=== PATIENT | female | born 1960 | race Caucasian/White ===

== ENCOUNTER 2022-08-18 11:44 | Inpatient (IN) | payer OTHER, SELFPAY ==
[2022-08-18 11:44] VITALS: BP 110/90; PULSE 93; RESP 16; TEMP 36.6; O2SAT 100; BMI 17.0
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
--- NOTE | 2022-08-18 12:42 | ED.RN ---
NO OLD EKGS LISTED.
[2022-08-18 13:27] LABS: International Normalized Ratio 1.1; Prothrombin Time (Protime)PT. 13.8 SECONDS (11.7-14.9)
[2022-08-18 13:28] LABS: Partial Thromboplast Time 28.4 Seconds (24.1-36.2)
[2022-08-18 13:29] LABS: Alcohol, Blood (Medical)-Serum < 3.0 mg/dL
[2022-08-18 13:36] LABS: Absolute Lymphocyte Count 0.73 X10^3/uL (0.83-4.51); Absolute Neutrophil Count 9.2 X10^3/uL (2.0-7.7); Basophil# 0.03 X10^3/uL; Basophil% 0.3 % (0-1); Eosinophil# 0.02 X10^3/uL; Eosinophils% 0.2 % (0-5); Hematocrit 42.1 % (37-47); Hemoglobin 14.4 g/dL (12.0-15.0); Lymphocyte # 0.73 X10^3/ul (0.83-4.51); Lymphocyte % 6.6 % (19-41); Mean Corp Hgb Conc 34.2 g/dL (32-36); Mean Corpuscular Hgb 32.3 pg (27.0-32.0); Mean Corpuscular Volume 94.4 fL (81-99); Mean Platelet Vol. 10.7 fl (6.2-12.0); Monocyte# 1.02 X10^3/uL; Monocyte% 9.2 % (0-10); NRBC Flagged by Analyzer 0 % (0-5); Neutrophil # 9.15 X10^3/uL (2.7-7.7); Neutrophil % 82.7 % (47-70); Platelet Count 281 K/mm3 (150-450); RBC Distribution Width CV 11.9 % (11.6-14.6); RBC Distribution Width SD 40.8 fl (35.1-43.9); Red Blood Count 4.46 M/mm3 (4.2-5.4); White Blood Count 11.1 K/mm3 (4.4-11.0)
[2022-08-18 13:39] LABS: Bacteria 0 SEEN /hpf (None Seen); Mucous, Urine 0 SEEN /hpf (<or=2+)
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
[2022-08-18 13:51] LABS: AST(SGOT) 104 U/L (15-37); Alanine Aminotransfer ALT/SGPT 55 U/L (13-56); Albumin, Serum 3.5 g/dL (3.2-5.0); Alkaline Phosphatase 72 U/L (45-117); Anion Gap 11 (5-15); BUN 13 mg/dL (7-18); BUN/Creat Ratio 19.9 RATIO (10-20); Bilirubin, Direct 0.18 mg/dL (0.00-0.30); CPK Total, Creatine Kinase 1791 U/L (26-192); Calcium,Total 9.5 mg/dL (8.5-10.1); Chloride 95 mmol/L (98-107); Creatinine, Serum 0.65 mg/dL (0.55-1.02); EST Glomerular Filtration Rate 98 mL/min (>60); Est Glom Filt Rate - Afr Amer 118 mL/min (>60); Estimated Creatinine Clearance 77.45 ml/min; Globulin 3.7 g/dL (2.2-4.2); Glucose 130 mg/dL (74-106); Potassium 2.8 mmol/L (3.5-5.1); Protein, Total 7.2 g/dL (6.4-8.2); Sodium Level 131 mmol/L (136-145)
[2022-08-18 13:53] LABS: Color, Urine Yellow (Yellow); Glucose, Dipstick Normal (Normal); Leukocyte Esterase-Dipstick 500 /ul (Negative); Nitrite-Dipstick Negative (Negative); Occult Blood-Urine 250 /ul (Negative); Protein-Dipstick 30 mg/dl (Negative); Urine Bilirubin Dipstick Negative (Negative); Urine Clarity Sl. Cloudy (Clear); Urine Urobilinogen Normal (Normal); Urine pH 6.5 (5.0 - 8.0)
[2022-08-18 13:55] LABS: Ketone-Dipstick 150 mg/dl (Negative)
[2022-08-18 13:58] LABS: Amphetamine Urine VISTA NEGATIVE (<1000 ng/mL); Barbiturate Urine VISTA NEGATIVE (< 200 ng/mL); Benzodiazepine Urine VISTA NEGATIVE (< 200 ng/mL); Cocaine Urine VISTA NEGATIVE (< 300 ng/mL); Ecstacy Urine VISTA POSITIVE (< 500 ng/mL); Methadone Urine VISTA NEGATIVE (< 300 ng/mL); PCP Urine VISTA NEGATIVE (< 25 ng/mL); THC Urine VISTA POSITIVE (< 50 ng/mL); Vista UDS pH Range 6
[2022-08-18 14:00] VITALS: BP 125/88; PULSE 87; RESP 19; O2SAT 99
[2022-08-18 14:00] LABS: Hyaline Cast 0-5 SEEN /lpf (0-5); Red Blood Cells-Urine 25-50 SEEN /hpf (0-5); Squamous Epithelial Cells - UA 0-5 SEEN /hpf (5-10); White Blood Cells 25-50 SEEN /hpf (0-5)
[2022-08-18] MEDS: 0.9% Normal Saline 1,000 ML 999 ML IV ×3 (14:31→18:08)
[2022-08-18 16:00] VITALS: BP 117/77; PULSE 77; RESP 12; O2SAT 99
[2022-08-18] MEDS: Potassium Chloride Oral Tablet 20 MEQ 40 MEQ PO (16:46)
[2022-08-18 17:43] LABS: CPK Total, Creatine Kinase 4728 U/L (26-192)
[2022-08-18 18:00] VITALS: BP 119/83; PULSE 84; RESP 14; O2SAT 97
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
[2022-08-18 19:02] VITALS: BP 119/68; PULSE 78; RESP 22; TEMP 36.6; O2SAT 98
[2022-08-18 19:33] LABS: Magnesium 1.7 mg/dL (1.6-2.6)
[2022-08-18 19:48] VITALS: BP 128/75; PULSE 78; RESP 18; TEMP 36.7; O2SAT 100; BMI 17.2
[2022-08-18] MEDS: Ibuprofen 600 MG Tablet PO (20:14)
[2022-08-18] MEDS: KCL 20MEQ in 0.9% NS 20 MEQ/1,000 ML IV.SOLN. 150 MEQ IV (20:23)
[2022-08-19 02:00] VITALS: BP 96/72; PULSE 74; RESP 18; TEMP 37.1; O2SAT 94
[2022-08-19] MEDS: KCL 20MEQ in 0.9% NS 20 MEQ/1,000 ML IV.SOLN. 150 MEQ IV ×2 (02:34→10:54)
[2022-08-19] MEDS: Albuterol 2.5 MG/3 ML VIAL.NEB. INHALATION (07:20)
[2022-08-19] MEDS: Budesonide Respules 0.5 MG/2 ML AMPUL.NEB. INHALATION (07:21)
[2022-08-19 07:22] VITALS: PULSE 78; RESP 18; O2SAT 96
[2022-08-19 07:43] LABS: Anion Gap 7 (5-15); BUN 3 mg/dL (7-18); BUN/Creat Ratio 7.6 RATIO (10-20); CPK Total, Creatine Kinase 3067 U/L (26-192); Calcium,Total 8.4 mg/dL (8.5-10.1); Chloride 114 mmol/L (98-107); EST Glomerular Filtration Rate 174 mL/min (>60); Est Glom Filt Rate - Afr Amer 210 mL/min (>60); Estimated Creatinine Clearance 127.38 ml/min; Glucose 103 mg/dL (74-106); Magnesium 1.8 mg/dL (1.6-2.6); Potassium 3.4 mmol/L (3.5-5.1); Sodium Level 145 mmol/L (136-145)
[2022-08-19 08:00] VITALS: BP 99/87; PULSE 83; RESP 18; TEMP 37.1; O2SAT 94
[2022-08-19] MEDS: Methylphenidate HCl 5 MG Tablet 20 MG PO ×3 (08:22→16:33)
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
[2022-08-19] MEDS: Loratadine 10 MG Tablet PO (10:53)
[2022-08-19] MEDS: Enoxaparin 40 MG/0.4 ML Syringe SC (10:54)
--- NOTE | 2022-08-19 11:58 | CASEMGMT ---
Social Work SW met w/pt in room as she had indicated to RN that she may want help in calling [facility]. SW spoke w/pt about this. Pt states she is not certain yet if she wants to call there, or where she wants to call. She informed SW she has ADHD, just started taking her medication again today. She states she isn't incompetent, but doesn't think she can do a phone call. SW explained can assist, and they would ask her questions. Pt again explained has ADHD, does not feel she can do this today. She states that the mind and body need to come together. SW inquired what medications she takes, pt states takes Ritalin and sometimes Wellbutrin. Pt does deny wanting to harm herself. Pt agreeable to speak w/SW tomorrow about calling [facility]. SW let the SW on MS3 know to follow up w/pt tomorrow. RUBY Mendoza
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
--- NOTE | 2022-08-19 15:43 | CASEMGMT ---
Social work Pt no longer has cell phone. Pt requesting cell phone number be removed from chart. SW updated demographics and removed previous cell number. Pt currently does not have another to add. PRAVEEN Maldonado
[2022-08-19 16:24] VITALS: BP 117/74; PULSE 91; RESP 18; TEMP 36.8; O2SAT 98
--- NOTE | 2022-08-19 20:02 | NURSING ---
Pt refused her evening meds. Pt said i have taken enough of those and no more.
[2022-08-19 20:07] VITALS: BP 122/77; PULSE 83; RESP 18; TEMP 36.6; O2SAT 95
--- NOTE | 2022-08-20 02:34 | NURSING ---
Attempted to do assessment pt refused. Would not allow this nurse to take cover off. Pt said i dont want to be touched. Did get vitals po from toe
[2022-08-20 02:35] VITALS: BP 132/83; PULSE 85; RESP 17; TEMP 36.7; O2SAT 95
[2022-08-20 07:35] LABS: Absolute Lymphocyte Count 1.21 X10^3/uL (0.83-4.51); Absolute Neutrophil Count 3.4 X10^3/uL (2.0-7.7); Basophil# 0.03 X10^3/uL; Basophil% 0.6 % (0-1); Eosinophil# 0.05 X10^3/uL; Eosinophils% 0.9 % (0-5); Hematocrit 36.6 % (37-47); Hemoglobin 12.6 g/dL (12.0-15.0); Lymphocyte # 1.21 X10^3/ul (0.83-4.51); Lymphocyte % 22.2 % (19-41); Mean Corp Hgb Conc 34.4 g/dL (32-36); Mean Corpuscular Hgb 32.5 pg (27.0-32.0); Mean Corpuscular Volume 94.3 fL (81-99); Mean Platelet Vol. 10.7 fl (6.2-12.0); Monocyte# 0.71 X10^3/uL; Monocyte% 13.1 % (0-10); NRBC Flagged by Analyzer 0 % (0-5); Neutrophil # 3.43 X10^3/uL (2.7-7.7); Platelet Count 235 K/mm3 (150-450); RBC Distribution Width CV 12.3 % (11.6-14.6); RBC Distribution Width SD 42.6 fl (35.1-43.9); Red Blood Count 3.88 M/mm3 (4.2-5.4); White Blood Count 5.4 K/mm3 (4.4-11.0)
[2022-08-20 07:53] VITALS: O2SAT 95
[2022-08-20 08:08] LABS: BUN 1 mg/dL (7-18); BUN/Creat Ratio 3.1 RATIO (10-20); CPK Total, Creatine Kinase 1828 U/L (26-192); Calcium,Total 8.9 mg/dL (8.5-10.1); Chloride 103 mmol/L (98-107); Creatinine, Serum 0.32 mg/dL (0.55-1.02); EST Glomerular Filtration Rate 223 mL/min (>60); Est Glom Filt Rate - Afr Amer 270 mL/min (>60); Estimated Creatinine Clearance 159.22 ml/min; Glucose 109 mg/dL (74-106); Potassium 2.8 mmol/L (3.5-5.1); Sodium Level 141 mmol/L (136-145)
[2022-08-20 08:09] LABS: Anion Gap 8 (5-15)
--- NOTE | 2022-08-20 09:15 | CASEMGMT ---
Social Work Per Fatoumata RNCM who spoke with pt regarding advance directives: Pt states she has completed these in the past, but no longer want the people listed to be decision makers. She states she does not want to complete new AD and states she does not want anyone as her POA. Attempted to educate pt that her LNOK would legally be the decision maker if she were in a condition unable to to make medical decisions and she states, Well by that time, it wouldn't matter. Pt does not have any documents on file. Pt is and does have a listed daughter, Dora Riley. PRAVEEN Dalton
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
--- NOTE | 2022-08-20 19:53 | NURSING ---
Patient refusing vitals to be checked, assessments, and meds this shift.
[2022-08-20 22:39] VITALS: BP 121/89; PULSE 77; RESP 18; TEMP 36.6; O2SAT 96
--- NOTE | 2022-08-20 23:01 | NURSING ---
3050. pt visibly covered in feces and urine. vitals and assessment were able to be completed with prompting from pt. pt refused to be 'totally uncovered during assessment and refused to have bedsheets and hygiene provided because it will throw off all of my progress and mess up my equilibrium. i am almost there so i dont want to disturb it primary RN Abi singh.
--- NOTE | 2022-08-20 23:15 | NURSING ---
Patient covered in urine and stool. Is allowing to be cleaned up at this time. Is covering face and will not allow us to see her face.
[2022-08-21 06:58] LABS: Absolute Lymphocyte Count 0.93 X10^3/uL (0.83-4.51); Absolute Neutrophil Count 3.4 X10^3/uL (2.0-7.7); Basophil# 0.02 X10^3/uL; Basophil% 0.4 % (0-1); Eosinophil# 0.06 X10^3/uL; Eosinophils% 1.2 % (0-5); Hematocrit 39.8 % (37-47); Hemoglobin 13.5 g/dL (12.0-15.0); Lymphocyte # 0.93 X10^3/ul (0.83-4.51); Lymphocyte % 18.5 % (19-41); Mean Corp Hgb Conc 33.9 g/dL (32-36); Mean Corpuscular Hgb 32.5 pg (27.0-32.0); Mean Corpuscular Volume 95.7 fL (81-99); Mean Platelet Vol. 10.1 fl (6.2-12.0); Monocyte# 0.64 X10^3/uL; Monocyte% 12.7 % (0-10); NRBC Flagged by Analyzer 0 % (0-5); Neutrophil # 3.37 X10^3/uL (2.7-7.7); Platelet Count 259 K/mm3 (150-450); Red Blood Count 4.16 M/mm3 (4.2-5.4)
[2022-08-21 07:37] LABS: Anion Gap 8 (5-15); BUN 10 mg/dL (7-18); BUN/Creat Ratio 25.9 RATIO (10-20); CPK Total, Creatine Kinase 622 U/L (26-192); Calcium,Total 9.1 mg/dL (8.5-10.1); Chloride 102 mmol/L (98-107); Creatinine, Serum 0.39 mg/dL (0.55-1.02); EST Glomerular Filtration Rate 180 mL/min (>60); Est Glom Filt Rate - Afr Amer 217 mL/min (>60); Estimated Creatinine Clearance 130.64 ml/min; Glucose 111 mg/dL (74-106); Potassium 2.8 mmol/L (3.5-5.1); Sodium Level 141 mmol/L (136-145)
[2022-08-21 08:11] VITALS: BP 117/72; PULSE 89; RESP 16; TEMP 36.8; O2SAT 94
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
--- NOTE | 2022-08-21 17:01 | NURSING ---
Crisis arrives to evaluate patient.
[2022-08-21 21:23] VITALS: BP 108/70; PULSE 90; RESP 18; TEMP 37.2; O2SAT 94
--- NOTE | 2022-08-22 03:32 | NURSING ---
SEVERAL CALLS FROM [facility]. ORIGINALLY SAID THEY WERE WAITING ON APPROVAL @ [facility] AND WOULD GO TO [facility] IF THEY STILL HAD A BED AFTER APPROVAL. LATER THEY CALLED AND SAID PT WOULD NOW BE GOING TO [facility] AND IT WOULD BE A WHILE, EXPECT PT TO BE HERE OVER THE WEEKEND
[2022-08-22 06:30] LABS: Absolute Lymphocyte Count 1.03 X10^3/uL (0.83-4.51); Absolute Neutrophil Count 2.7 X10^3/uL (2.0-7.7); Basophil# 0.02 X10^3/uL; Basophil% 0.5 % (0-1); Eosinophil# 0.06 X10^3/uL; Eosinophils% 1.4 % (0-5); Hematocrit 40.1 % (37-47); Hemoglobin 13.6 g/dL (12.0-15.0); Lymphocyte # 1.03 X10^3/ul (0.83-4.51); Lymphocyte % 23.3 % (19-41); Mean Corp Hgb Conc 33.9 g/dL (32-36); Mean Corpuscular Hgb 32.3 pg (27.0-32.0); Mean Corpuscular Volume 95.2 fL (81-99); Mean Platelet Vol. 9.8 fl (6.2-12.0); Monocyte# 0.64 X10^3/uL; Monocyte% 14.4 % (0-10); NRBC Flagged by Analyzer 0 % (0-5); Neutrophil # 2.68 X10^3/uL (2.7-7.7); Neutrophil % 60.4 % (47-70); Platelet Count 272 K/mm3 (150-450); RBC Distribution Width CV 11.9 % (11.6-14.6); RBC Distribution Width SD 41.3 fl (35.1-43.9); Red Blood Count 4.21 M/mm3 (4.2-5.4); White Blood Count 4.4 K/mm3 (4.4-11.0)
[2022-08-22 07:16] LABS: Anion Gap 10 (5-15); BUN 21 mg/dL (7-18); BUN/Creat Ratio 56.6 RATIO (10-20); CPK Total, Creatine Kinase 240 U/L (26-192); Chloride 105 mmol/L (98-107); Creatinine, Serum 0.37 mg/dL (0.55-1.02); EST Glomerular Filtration Rate 188 mL/min (>60); Est Glom Filt Rate - Afr Amer 227 mL/min (>60); Glucose 102 mg/dL (74-106); Potassium 2.9 mmol/L (3.5-5.1); Sodium Level 143 mmol/L (136-145)
--- NOTE | 2022-08-22 08:02 | NURSING ---
Patient only allowed one set of vitals and one assessment last night (08/21/22.)
[2022-08-22 09:20] VITALS: BP 123/85; PULSE 79; RESP 18; TEMP 36.9; O2SAT 98
--- NOTE | 2022-08-22 09:35 | NURSING ---
This RN in room and introduced myself. I don't need no nurse. Explained to pt that I would just be there to make sure she was safe. This RN explained that I had to take her Blood pressure and pt agitated and stated They already got it. Explained that that was last night and it was important to check it again. Pt agreeable. Vitals taken, see vitals. This RN tried to get pt to take ensure, pt refused despite showing her it was sealed. This RN also asked if it was okay to give her her scheduled meds. Pt refused.
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
--- NOTE | 2022-08-22 12:29 | NURSING ---
call placed to crisis requesting update on bed status for patient
[2022-08-22] MEDS: Potassium Chloride Oral Tablet 20 MEQ 60 MEQ PO (12:38)
[2022-08-22 17:51] VITALS: BP 102/65; PULSE 88; RESP 16; TEMP 36.7; O2SAT 97
[2022-08-23 00:40] VITALS: BP 122/85; PULSE 69; RESP 18; TEMP 36.8; O2SAT 96
[2022-08-23 07:18] LABS: Absolute Lymphocyte Count 1.73 X10^3/uL (0.83-4.51); Basophil# 0.05 X10^3/uL; Basophil% 0.9 % (0-1); Eosinophil# 0.12 X10^3/uL; Eosinophils% 2.1 % (0-5); Hematocrit 41.2 % (37-47); Hemoglobin 14.3 g/dL (12.0-15.0); Lymphocyte # 1.73 X10^3/ul (0.83-4.51); Lymphocyte % 30.2 % (19-41); Mean Corp Hgb Conc 34.7 g/dL (32-36); Mean Corpuscular Hgb 32.7 pg (27.0-32.0); Mean Corpuscular Volume 94.3 fL (81-99); Mean Platelet Vol. 10.5 fl (6.2-12.0); Monocyte# 0.81 X10^3/uL; Monocyte% 14.1 % (0-10); NRBC Flagged by Analyzer 0 % (0-5); Neutrophil # 2.99 X10^3/uL (2.7-7.7); Neutrophil % 52.2 % (47-70); Platelet Count 284 K/mm3 (150-450); RBC Distribution Width CV 11.7 % (11.6-14.6); RBC Distribution Width SD 40.7 fl (35.1-43.9); Red Blood Count 4.37 M/mm3 (4.2-5.4); White Blood Count 5.7 K/mm3 (4.4-11.0)
[2022-08-23 07:56] LABS: Anion Gap 7 (5-15); BUN 15 mg/dL (7-18); BUN/Creat Ratio 39.9 RATIO (10-20); Calcium,Total 9.1 mg/dL (8.5-10.1); Chloride 100 mmol/L (98-107); Creatinine, Serum 0.38 mg/dL (0.55-1.02); EST Glomerular Filtration Rate 185 mL/min (>60); Est Glom Filt Rate - Afr Amer 224 mL/min (>60); Estimated Creatinine Clearance 134.08 ml/min; Glucose 106 mg/dL (74-106); Sodium Level 138 mmol/L (136-145)
[2022-08-23 08:16] VITALS: BP 106/70; PULSE 78; RESP 18; TEMP 36.6; O2SAT 98
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
--- NOTE | 2022-08-23 12:16 | NURSING ---
pt refusing oral k+ supplement, will tray again later
[2022-08-23] MEDS: Potassium Chloride Oral Tablet 20 MEQ 60 MEQ PO (14:01)
--- NOTE | 2022-08-23 19:27 | NURSING ---
[facility] called and beds days have been granted now just waiting on a bed. No beds at this time available
[2022-08-23 20:11] VITALS: BP 123/83; PULSE 98; RESP 18; TEMP 36.8; O2SAT 99
--- NOTE | 2022-08-23 20:21 | NURSING ---
Patient refusing her HS meds. I don't want any chemicals.
[2022-08-24 05:31] VITALS: BP 93/73; PULSE 77; RESP 18; TEMP 36.6; O2SAT 98
[2022-08-24 06:27] LABS: Absolute Lymphocyte Count 1.71 X10^3/uL (0.83-4.51); Basophil# 0.04 X10^3/uL; Basophil% 0.9 % (0-1); Eosinophil# 0.17 X10^3/uL; Eosinophils% 3.6 % (0-5); Hematocrit 43.3 % (37-47); Hemoglobin 14.4 g/dL (12.0-15.0); Lymphocyte # 1.71 X10^3/ul (0.83-4.51); Lymphocyte % 36.4 % (19-41); Mean Corp Hgb Conc 33.3 g/dL (32-36); Mean Corpuscular Hgb 32.2 pg (27.0-32.0); Mean Corpuscular Volume 96.9 fL (81-99); Mean Platelet Vol. 10.6 fl (6.2-12.0); Monocyte# 0.76 X10^3/uL; Monocyte% 16.2 % (0-10); NRBC Flagged by Analyzer 0 % (0-5); Neutrophil % 42.5 % (47-70); Platelet Count 314 K/mm3 (150-450); RBC Distribution Width CV 11.9 % (11.6-14.6); RBC Distribution Width SD 42.5 fl (35.1-43.9); Red Blood Count 4.47 M/mm3 (4.2-5.4); White Blood Count 4.7 K/mm3 (4.4-11.0)
[2022-08-24 07:04] LABS: Anion Gap 7 (5-15); BUN 13 mg/dL (7-18); BUN/Creat Ratio 27.4 RATIO (10-20); Calcium,Total 9.2 mg/dL (8.5-10.1); Chloride 103 mmol/L (98-107); Creatinine, Serum 0.47 mg/dL (0.55-1.02); EST Glomerular Filtration Rate 142 mL/min (>60); Est Glom Filt Rate - Afr Amer 171 mL/min (>60); Glucose 102 mg/dL (74-106); Potassium 3.5 mmol/L (3.5-5.1); Sodium Level 141 mmol/L (136-145)
[2022-08-24 08:28] VITALS: BP 98/66; PULSE 78; RESP 16; TEMP 37.1; O2SAT 97
--- NOTE | 2022-08-24 13:21 | CASEMGMT ---
Addendum entered by Arianne Isaac 08/24/22 14:39: SW called crisis to confirm fax of [place] slip had been received. Spoke to Corin. Corin informed pink slip had been received but a covid test was also needed. SEE spoke to Unit Sec., Cholo. Cholo stated has fax ready to send and will do this now. Addendum entered by Arianne Isaac 08/24/22 13:39: SW faxed pink slip to crisis. Original Note: Social work SW in to pt room to follow up and check in on pt. SW re-introduced self and got reacquainted with pt. Pt remembers speaking with SW last week and was open to discussion. SW inquired about crisis assessment. Pt was open, shared had spoke to someone on the phone who asked a lot of questions that I didn't feel safe answering. SW inquired about thought process, Mental Health and overall well being. Pt stated feeling about 80% better today. SW asked if the person who spoke to on the phone who asked a lot of questions had discussed plans moving forward with pt. Pt stated no. SW explained pt is medically ready and the worker who assessed pt feels pt would be better served at another facility. Patient became upset. Pt presenting some paranoia after SW discussed pt moving to a different facility, based on discussion of fears of others finding pt and not feeling safe. Pt refused, stated I am not ready to leave here. I don't want to go anywhere else. There are bad people who will find me if I move from this bed. Pt discussed having low blood pressure and stated I don't think I am ready to leave because my BP is low. SW updated MD Case regarding pt paranoia and malingering behaviors. MD Case stated would complete pink slip for [facility] as requested by [facility]. SW to fax [place] slip to [facility] to be passed on to [facility] for pt's placement. PLAN: Inpatient psych placement at [facility] Arianne isaac
[2022-08-24 13:49] VITALS: BP 116/76; PULSE 77; RESP 16; TEMP 36.7; O2SAT 97
--- NOTE | 2022-08-24 17:55 | PCM.PN.HOSP ---
Reason for Visit Reason for Visit: Diagnoses Hypokalemia (08/18/22) Rhabdomyolysis (08/18/22) Dysphagia, unspecified (08/18/22) Subjective Subjective Examined today, she has no complaints of any pain, shortness of breath, fever, chills, or chest pain. I talked at length with case management and social insurance adviser, they indicated that the patient would need to have a pink slip filled out before a psych unit would accept the patient. I filled out this form today. It is unclear whether the patient know she is going to a psych unit at this time, and my conversation with her today she did not ask me any questions or engage in any long conversation. Objective Data Objective Data Vital Signs: Vital Signs Temp Pulse Resp BP Pulse Ox O2 Del Method 98.0 F 77 16 116/76 97 Room Air 08/24/22 13:49 08/24/22 13:49 08/24/22 13:49 08/24/22 13:49 08/24/22 13:49 08/24/22 13:49 Oxygen Delivery Method Room Air Weight: 54.63 kg Body Mass Index (BMI) 17.2 Intake & Output: Intake and Output for Last 24 Hours 08/22/22 08/23/22 08/24/22 23:59 23:59 23:59 Intake Total 1100 / 1100 Balance 1100 / 1100 Medical Nutrition Assessment Dietitian: Malnutrition Criteria Met Start: 08/19/22 09:25 Freq: Status: Active Protocol: Document 08/24/22 08:13 AG (Rec: 08/24/22 08:13 [id number]) Nutrition Malnutrition Evidence of Malnutrition Exists Yes Malnutrition (moderate): Chronic Evidenced By Suboptimal Energy Intake ( Moderate),Physical Changes ( Moderate) Clinical Problem Chronic Disease or Condition Related Malnutrition Etiology moderate, chronic malnutrition related to inadequate energy intake Signs/Symptoms as evidenced by estimated PO intake meeting <75% of estimated energy needs > 3 months; mild muscle wasting/ fat loss evident per physical exam in orbital, clavicle, acromion, and temporal areas; BMI 17.3 Status Active Problem Recommendation Dietitian Recommendations/Changes continue regular diet, vegetarian per pt preference w / foods provided in original packaging. Will continue to offer ONS- 240mL Ensure Plus High Protein (in bottle) TID w / meals for additional nutrition if consumed. Lab / Micro Data Result Diagrams: 08/24/22 05:25 08/24/22 05:25 Labs: Laboratory Results - last 24 hr 08/24/22 05:25: WBC 4.7, RBC 4.47, Hgb 14.4, Hct 43.3, MCV 96.9, MCH 32.2 H, MCHC 33.3, RDW Std Deviation 42.5, RDW Coeff of Miguelito 11.9, Plt Count 314, MPV 10.6, Immature Gran % (Auto) 0.400, Neut % (Auto) 42.5 L, Lymph % (Auto) 36.4, [place] % (Auto) 16.2 H, Eos % (Auto) 3.6, Baso % (Auto) 0.9, Absolute Neuts (auto) 2.0, Absolute Lymphs (auto) 1.71, Nucleated RBC % 0 08/24/22 05:25: Sodium 141, Potassium 3.5, Chloride 103, Carbon Dioxide 31.0, Anion Gap 7, BUN 13, Creatinine 0.47 L, Estim Creat Clear Calc 108.40, Est GFR (MDRD) Af Amer 171, Est GFR (MDRD) Non-Af 142, BUN/Creatinine Ratio 27.4 H, Glucose 102, Calcium 9.2 Micro: Microbiology 08/24/22 05:45 Nasal Secretion SARS-CoV-2 Antigen (Rapid) - Final 08/18/22 13:30 Urine, Clean Catch Urine Culture - Final Escherichia coli Streptococcus group A Rhythm Strip Rhythm Strip: Sinus Rhythm Rate: 83 Ectopy: None Physical Exam Const alert, oriented x3 and no apparent distress Constitutional Narrative: Patient appears cachectic General Appearance: cooperative, well kempt and well developed Orientation / Consciousness: awake, oriented to person and oriented to place HEENT normocephalic, head/scalp atraumatic and moist oral mucous membranes Eyes PERRL, EOMs intact bilaterally and conjunctivae normal Neck supple, no JVD, thyroid normal and no carotid bruits General: trachea midline Resp normal respiratory effort and clear to auscultation bilaterally Auscultation: Negative for rales, rhonchi or wheezes Cardio regular rate, regular rhythm, S1 normal heart sound, S2 normal heart sound, no murmurs, no rub and no gallops GI normal to inspection, nondistended, normoactive bowel sounds, soft to palpation, non-tender and non-distended Extremity normal to inspection and no clubbing, cyanosis or edema Skin no rashes or lesions noted General Skin Exam: no breakdown Neuro oriented x3, CN's II-XII intact bilaterally, moves all extremities, no focal motor deficits and no sensory deficits noted Sensorium / Orientation: awake, alert, oriented to person and oriented to place Speech: speech normal Psych affect normal Psych Narrative: Again, patient does not engage in any lengthy conversation with this examiner Assessment & Plan Assessment/Plan (1) Rhabdomyolysis: PLAN: Plan 1. Acute psychosis-etiology unclear, it is possible patient has underlying schizoaffective disorder, patient will need at least temporary placement in a psychiatric facility for further treatment at this time, we are waiting on approval at this time. #2 rhabdomyolysis-resolved at this time #3 chronic protein and caloric nfljameusftw-skafisex-cy evidenced by an estimated p.o. intake meeting less than 75% of estimated energy needs more than 3 months, mild muscle wasting/fat loss evident per physical exam and orbital, clavicular, acromial, and temporal areas-continue regular diet-vegetarian per patient preference, 240 cc Ensure Plus high-protein 3 times daily with meals has also been ordered, nutritional services is participating in her care #4 hypokalemia-corrected at this time, potassium will be monitored as needed #5 ADHD-patient will remain on her current medications Total clinical time spent by myself addressing the patient's medical issues, reviewing all of her data, and collaborating with patient's care team: 35 minutes Charges/Coding Visit Charges Inpatient E&M: 68528 Subs Hosp L2
--- NOTE | 2022-08-24 20:45 | NURSING ---
Shen from [place] called. The physician there would like a repeat EKG and copy of her most recent labs, specifically potassium. These should be faxed to the central nursing office at [place] at [phone].
--- NOTE | 2022-08-24 20:50 | EKG12_ITS ---
Test Reason : Blood Pressure : / mmHG Vent. Rate : 061 BPM Atrial Rate : 061 BPM P-R Int : 130 ms QRS Dur : 082 ms QT Int : 426 ms P-R-T Axes : 066 072 072 degrees QTc Int : 428 ms Normal sinus rhythm Normal ECG Confirmed by RICKY NUGENT, MEMO ([id number]), pictures editor TRACEY ROBIN ([id number]) on 08/25/2022 1:16:25 PM Referred By: JAYSON Confirmed By:LANDON GARCÍA MD
[2022-08-24 21:20] VITALS: BP 127/81; PULSE 77; RESP 18; TEMP 36.4; O2SAT 98
[2022-08-25 01:05] VITALS: BP 119/73; PULSE 70; RESP 18; TEMP 36.4; O2SAT 98
[2022-08-25 06:40] LABS: Absolute Lymphocyte Count 1.77 X10^3/uL (0.83-4.51); Absolute Neutrophil Count 2.5 X10^3/uL (2.0-7.7); Basophil# 0.05 X10^3/uL; Eosinophil# 0.15 X10^3/uL; Eosinophils% 2.9 % (0-5); Hematocrit 41.1 % (37-47); Hemoglobin 13.4 g/dL (12.0-15.0); Lymphocyte # 1.77 X10^3/ul (0.83-4.51); Lymphocyte % 33.9 % (19-41); Mean Corp Hgb Conc 32.6 g/dL (32-36); Mean Corpuscular Hgb 32.4 pg (27.0-32.0); Mean Corpuscular Volume 99.5 fL (81-99); Mean Platelet Vol. 9.8 fl (6.2-12.0); Monocyte# 0.74 X10^3/uL; Monocyte% 14.2 % (0-10); NRBC Flagged by Analyzer 0 % (0-5); Neutrophil # 2.49 X10^3/uL (2.7-7.7); Neutrophil % 47.6 % (47-70); Platelet Count 309 K/mm3 (150-450); RBC Distribution Width SD 43.8 fl (35.1-43.9); Red Blood Count 4.13 M/mm3 (4.2-5.4); White Blood Count 5.2 K/mm3 (4.4-11.0)
--- NOTE | 2022-08-25 06:44 | NURSING ---
Patient requested pain meds. When nurse came in room, patient was sleeping.
[2022-08-25 07:01] LABS: Anion Gap 4 (5-15); BUN 11 mg/dL (7-18); BUN/Creat Ratio 21.9 RATIO (10-20); Calcium,Total 9.3 mg/dL (8.5-10.1); Chloride 104 mmol/L (98-107); EST Glomerular Filtration Rate 132 mL/min (>60); Est Glom Filt Rate - Afr Amer 160 mL/min (>60); Glucose 94 mg/dL (74-106); Potassium 3.9 mmol/L (3.5-5.1); Sodium Level 140 mmol/L (136-145)
[2022-08-25 07:28] LABS: CPK Total, Creatine Kinase 53 U/L (26-192)
[2022-08-25 08:59] VITALS: BP 111/64; PULSE 72; RESP 16; TEMP 37.2; O2SAT 100
--- NOTE | 2022-08-26 11:18 | CASEMGMT ---
Social work SW called pt daughter, Dora Riley, and informed that pt has transferred to [facility] for inpatient psychiatric treatment. Dora voiced understanding. SW provided contact number for [place] to Dora. PRAVEEN Maldonado
--- NOTE | 2022-09-06 12:14 | DS.PCM_ITS ---
Providers Date of Admission: 08/18/22 Date of Discharge: 08/25/22 Primary Care Physician: Out of Town Doctor Reason For Visit: RHABDOMYOLYSIS Diagnosis Discharge Diagnosis (1) Rhabdomyolysis: Status: Acute Code(s): M62.82 - Rhabdomyolysis Plan 1. Acute psychosis-etiology unclear, it is possible patient has underlying schizoaffective disorder, patient will need at least temporary placement in a psychiatric facility for further treatment at this time, we are waiting on approval at this time. #2 rhabdomyolysis-resolved at this time #3 chronic protein and caloric [id number]-bx evidenced by an estimated p.o. intake meeting less than 75% of estimated energy needs more than 3 months, mild muscle wasting/fat loss evident per physical exam and orbital, clavicular, acromial, and temporal areas-continue regular diet-vegetarian per patient preference, 240 cc Ensure Plus high-protein 3 times daily with meals has also been ordered, nutritional services is participating in her care #4 hypokalemia-corrected at this time, potassium will be monitored as needed #5 ADHD-patient will remain on her current medications #6 probable schizoaffective disorder Total clinical time spent by myself addressing the patient's medical issues, reviewing all of her data, and collaborating with patient's care team: 35 minutes Medications at Discharge Home Medications albuterol sulfate 90 mcg/actuation aerosol inhaler 2 puff inhalation 4X/DAY PRN sob 08/18/22 aripiprazole 10 mg tablet 5 mg PO BID Check with primary doctor 08/18/22 fluticasone 100 mcg-salmeterol 50 mcg/dose blistr powdr for inhalation 1 ea inhalation BID Check with primary doctor 08/18/22 loratadine 10 mg tablet 10 mg PO DAILY Check with primary doctor 08/18/22 methylphenidate HCl 20 mg tablet 20 mg PO TID Check with primary doctor 08/18/22 simvastatin 20 mg tablet 20 mg PO QHS Check with primary doctor 08/18/22 bupropion HCl 300 mg 24 hr tablet, extended release 300 mg PO DAILY Check with primary doctor 08/19/22 multivitamin 1 tab Check with primary doctor 08/19/22 Hospital Course Operations None Procedures None Summary of Care Provided Minutes Spent on Discharge: 31 Hospital Course: 62-year-old white female was seen in the emergency room at [facility] after being brought in by the police for evaluation of abnormal behavior. Patient had been driving from [place], she told the emergency room physician that she was trying to escape from her corrupt police and contaminated water patient had a pole with her car and was able to get herself out of her car and ran to an individual's house, she was then apprehended by police and brought to the ER for evaluation. Patient's potassium was noted to be low at 2.8, CPK was elevated, imaging studies did not reveal any abnormality. Patient was admitted to [place] [address], information obtained from patient's family physician indicated that the patient has occasional episodes of confusion and mental breakdown and has to be admitted to psychiatric facility until he clears. Patient was admitted to [place] [address] and given IV fluids, labs were monitored, patient exhibited signs of acute psychosis during her hospitalization with delusions of seeing people in her room trying to harm her. Patient was seen by mental health during her hospital stay and she ultimately was pink slipped to a psychiatric facility for further care. On 08/25/2022, patient was seen and examined: On examination she appeared her stated age, she does not appear to be in any distress. Vital signs as documented. Skin warm and dry and without overt rashes. Neck without JVD, thyroid appears normal, trachea is midline, neck is supple. Lungs clear, normal air movement was noted. Heart exam notable for regular rhythm, normal sounds and absence of murmurs, rubs or gallops. Abdomen unremarkable and without evidence of organomegaly, masses, or abdominal aortic enlargement, bowel sounds are present in all 4 quadrants, no abdominal tenderness was noted. Extremities nonedematous, no cyanosis was noted, no clubbing was noted. Neuro: Cranial nerves II through XII are grossly intact, no focal motor deficits were noted, sensation to light touch and pinprick is intact, motor exam 5/5 throughout. Psych: Patient is alert, she is oriented as to self. She exhibits delusional thinking. Patient was transferred to an inpatient psychiatric facility on 08/25/2022 in stable condition. Weight / BMI Weight Weight: 54.63 kg Body Mass Index (BMI) 17.2 ABG / Lab / Microbiology Data Result Diagrams: 08/25/22 06:22 08/25/22 06:22 Microbiology: Microbiology 08/24/22 05:45 Nasal Secretion SARS-CoV-2 Antigen (Rapid) - Final 08/18/22 13:30 Urine, Clean Catch Urine Culture - Final Escherichia coli Streptococcus group A Meaningful Use Info Meaningful Use Diagnoses (Choose all that apply): None applicable Discharge Plan Admission Admit Date/Time: 08/18/22 18:48 Attending Provider: Gigi Case Primary Care Provider: Shaylee Mosher,Out of Consulting Providers: Sincere Peter ; Coco Santoro Discharge Orders/Prescriptions Prescriptions: No Action albuterol sulfate 90 mcg/actuation HFA aerosol inhaler 2 puff INHALATION 4X/DAY PRN (Reason: sob) fluticasone propion-salmeterol 100-50 mcg/dose blister with device 1 ea INHALATION BID simvastatin 20 mg tablet 20 mg PO QHS methylphenidate HCl 20 mg tablet 20 mg PO TID loratadine 10 mg tablet 10 mg PO DAILY aripiprazole 10 mg tablet 5 mg PO BID Label Comments: TAKE ONE-HALF TABLET BY MOUTH TWICE DAILY bupropion HCl 300 mg tablet extended release 24 hr 300 mg PO DAILY Label Comments: TAKE ONE TABLET BY MOUTH EVERY MORNING multivitamin [Multi-Day] Tablet 1 tab Referrals / Follow Up: Shaylee Doctor,Out of [Primary Care Provider] - Disposition Disposition (needs filled in before D/C Order can be placed): Psychiatric Hospital or Unit Charges/Coding Visit Charges Inpatient E&M: 90227 Disch Hosp >30min
== END 2022-08-25 09:30 | DRG 558 ==
LOC: ED 16:24 → MS3 19:24
PROVIDERS: Emergency Medicine; Student in an Organized Health Care Education/Training Program; Emergency Provider Emergency Medicine; Visit Provider Internal Medicine
DX: M62.82 Rhabdomyolysis (principal); E44.0 Moderate protein-calorie malnutrition; F23 Brief psychotic disorder; Z68.1 Body mass index [BMI] 19.9 or less, adult; F25.9 Schizoaffective disorder, unspecified; E87.6 Hypokalemia; F12.90 Cannabis use, unspecified, uncomplicated; E78.5 Hyperlipidemia, unspecified; F90.9 Attention-deficit hyperactivity disorder, unspecified type; R53.81 Other malaise; V47.5XXA Car driver injured in collision with fixed or stationary object in traffic accident, initial encounter
CPT/HCPCS: 36415; 70450; 71260; 72125; 74177; 80048; 80076; 80307; 81001; 82077; 82550; 83735; 85025; 85610; 85730; 87077; 87086; 87088; 87186; 87811; 93005; 94640; 97802; 99284; J7030; Q9967; A4216